=== PATIENT | male | born 1980 | race Caucasian/White ===

== ENCOUNTER 2021-05-18 12:33 | Emergency (ER) | payer OTHER, SELFPAY ==
--- NOTE | ~2021-05-18 | CT_ITS ---
EXAMINATION: CT ABDOMEN AND PELVIS WITHOUT CONTRAST CLINICAL INFORMATION: Left flank pain COMPARISON: None TECHNIQUE: Multidetector volumetric imaging was performed from the superior aspect of the liver through the pubic symphysis. Sagittal and coronal reformatted images were obtained on the technologist's workstation. This CT examination was performed using dose optimization techniques as appropriate, variously including the following: *Automated exposure control *Adjustment of mA and/or kV according to patient size (this includes techniques or standardized protocols for targeted exams where dose is matched to indication/reason for exam; i.e. extremities or head) *Use of iterative reconstruction technique DLP: 479 mGy-cm FINDINGS: LUNG BASES: The visualized lung bases are unremarkable. There is a calcified granuloma seen within the right lobe. No pleural or pericardial effusion. LIVER, GALLBLADDER, AND BILIARY TREE: The liver is normal in size, shape, and attenuation. No focal hepatic lesion or biliary ductal dilatation is present. The gallbladder is unremarkable with no evidence of radiopaque gallstones, gallbladder wall thickening, or obvious pericholecystic inflammatory changes. PANCREAS: Unremarkable. SPLEEN: Unremarkable. ADRENAL GLANDS: Unremarkable. KIDNEYS AND URETERS: The right kidney is normal in size, shape, and attenuation. No hydronephrosis, hydroureter, or calculi seen. No perinephric stranding. The left renal upper collecting system is mildly full. There is some mild columnization of the left ureter down to a 4 mm calculus within the distal left ureter. There is mild perinephric stranding present. BLADDER: Unremarkable. GASTROINTESTINAL TRACT: No dilated loops of large or small bowel are evident. No free air or free fluid. No pericolonic inflammatory change. No evidence of acute appendicitis. There is a small appendicolith present. ABDOMINAL WALL: No significant hernia is appreciated. LYMPH NODES: No lymphadenopathy. VASCULAR: Unremarkable. PELVIC VISCERA: No abnormal pelvic masses seen. OSSEOUS STRUCTURES: No suspicious destructive bony lesion. There is degenerative disc disease seen at the L5-S1 level. CT/CT abdomen pelvis wo con IMPRESSION: 4 mm obstructing distal left ureteral calculus.
[2021-05-18 12:39] VITALS: BP 152/93; PULSE 59; RESP 20; TEMP 37; O2SAT 100; BMI 26.6
[2021-05-18 13:04] LABS: Glucose Urine UA NEG (NEG); Leukocyte Esterase Urine NEG (NEG); Nitrite Urine NEG (NEG); UACC Culture Trigger NO; Urine Blood 3+ (NEG); Urine Ketones 5 MG/DL (NEG); Urine Protein NEG (NEG-TRACE)
[2021-05-18 13:06] LABS: Appearance Urine CLEAR; Color Urine YELLOW
[2021-05-18 13:23] LABS: WBC Urine 0 /HPF (0-4)
[2021-05-18 14:00] VITALS: BP 132/71; PULSE 81; RESP 16
[2021-05-18 14:30] LABS: Basophils Percent Auto 0.3 % (0-2); Eosinophils Percent Auto 0.3 % (0-4); Hematocrit 42.6 % (42-52); Hemoglobin 14.1 g/dl (14.0-18.0); Imm Gran Abs Auto 0.04 X10*3/uL (0.00-0.03); Imm Gran Pct Auto 0.3 % (0.0-0.4); Lymphocytes Absolute Auto 0.7 X10*3/uL (1.2-4.9); Lymphocytes Percent Auto 6.1 % (20-40); MANUAL DIFF FLAG NO; Mean Corpuscular HGB Conc 33.1 g/dl (31.0-36.0); Mean Corpuscular Hemoglobin 31.1 pg (27.0-33.0); Mean Corpuscular Volume 93.8 fL (80-98); Mean Platelet Volume 11.9 fL (9.4-12.4); Monocytes Absolute Auto 0.9 X10*3/uL (0.1-1.2); Monocytes Percent Auto 7.6 % (2-11); Neutrophils Absolute Auto 10.1 X10*3/uL (2.0-8.3); Neutrophils Percent Auto 85.4 % (45-73); Platelet Count 163 X10*3/uL (160-400); Red Blood Count 4.54 X10*6/uL (4.60-5.80); Red Cell Distribution Width 11.9 % (11.0-16.0); White Blood Count 11.8 X10*3/uL (4.8-10.8)
--- NOTE | 2021-05-18 14:46 | ED.ABDPAIN ---
HPI - Abdominal Pain General Chief Complaint: Abdominal Pain Stated Complaint: abd pain Time Seen by Provider: 05/18/21 14:35 History of Present Illness HPI narrative: Patient is a 41-year-old male presents today with having left flank pain radiating to the left groin area. Sharp in nature sudden onset since this morning. No fever no chills no change with bowel movements. No change with urination. No change with movement. Patient from home. Never had similar pains in the past. No cough no congestion or upper respiratory symptoms. No diaphoresis. Related Data Previous Rx's Medication Instructions Recorded ibuprofen 400 mg tablet 400 mg PO Q6H PRN #20 tab 05/18/21 ondansetron HCl 4 mg tablet 4 mg PO Q8H PRN #10 tab 05/18/21 (Zofran) oxycodone 5 mg tablet 5 mg PO Q8H PRN #7 tab 05/18/21 tamsulosin 0.4 mg capsule (Flomax) 0.4 mg PO DAILY #7 cap 05/18/21 Allergies Allergy/AdvReac Type Severity Reaction Status Date / Time No Known Allergies Allergy Mild NOT Verified 05/18/21 12:38 APPLICABLE Review of Systems Review of Systems No fever no chills no chest pain or shortness of breath No pain on urination No nausea no vomiting Yes all other systems are reviewed and are negative Physical Exam Vital Signs: Vital Signs: Last Vital Signs Temp 98.6 F 05/18/21 12:39 Pulse 81 05/18/21 14:00 Resp 16 05/18/21 14:00 BP 132/71 05/18/21 14:00 Pulse Ox 100 05/18/21 12:39 Body Mass Index 26.6 Appearance: Alert. Oriented X3. No acute distress. Eyes: Pupils equal, round and reactive to light. ENT: Pharynx normal. Neck: Normal inspection. Neck supple. No lymph nodes noted. No crepitus CVS: Normal heart rate and rhythm. Pulses normal. Normal S1 and S2 Respiratory: No respiratory distress. Breath sounds normal. No Wheezing. No rales Abdomen: Soft and nontender. No rigidity. No distention. good BS x4 Skin: Skin warm and dry. Normal skin color. Normal skin turgor. Extremities: No lower extremity edema. Neurovascular intact to all extremities. No Lacerations. No Rash Neuro: Oriented X 3. No motor deficit. No sensory deficit. Moving all extermities. No slurred speech MDM - Abdominal Pain MDM Narrative Medical decision making narrative: Urine showed no evidence of infection. Lots of blood. Creatinine is normal no evidence for renal insufficiency. CT scan positive for left-sided 4 mm stone. Pain is currently controlled after medication. Will discharge patient home follow-up with urology on an outpatient basis. In stable condition. Differential Diagnosis Differential diagnosis: Likely abdominal pain, aortic dissection, acute appendicitis, bowel perforation, calculus of kidney, constipation, gastroenteritis, gastritis, pancreatitis, peptic ulcer disease and renal colic Lab Data Result diagrams: 05/18/21 14:26 05/18/21 14:26 Labs: Lab Results 05/18/21 05/18/21 05/18/21 Range/Units 12:49 14:26 14:26 WBC 11.8 H (4.8-10.8) X10*3/uL RBC 4.54 L (4.60-5.80) X10*6/uL Hgb 14.1 (14.0-18.0) g/dl Hct 42.6 (42-52) % MCV 93.8 (80-98) fL MCH 31.1 (27.0-33.0) pg MCHC 33.1 (31.0-36.0) g/dl RDW 11.9 (11.0-16.0) % Plt Count 163 (160-400) X10*3/uL MPV 11.9 (9.4-12.4) fL Immature Gran % (Auto) 0.3 (0.0-0.4) % Neut % (Auto) 85.4 H (45-73) % Lymph % (Auto) 6.1 L (20-40) % [place] % (Auto) 7.6 (2-11) % Eos % (Auto) 0.3 (0-4) % Baso % (Auto) 0.3 (0-2) % Lymph # (Auto) 0.7 L (1.2-4.9) X10*3/uL [place] # (Auto) 0.9 (0.1-1.2) X10*3/uL Eos # (Auto) 0.0 (0.0-0.4) X10*3/uL Baso # (Auto) 0.0 (0.0-0.2) X10*3/uL Abs Immat Gran (auto) 0.04 H (0.00-0.03) X10*3/uL Absolute Neuts (auto) 10.1 H (2.0-8.3) X10*3/uL Absolute Nucleated RBC 0.000 (0.0-0.012) X10*3/uL Nucleated RBC % (auto) 0.0 (0.0-0.2) /100WBC Sodium 141 (135-145) mmol/L Potassium 4.1 (3.3-5.1) mmol/L Chloride 106 (96-108) mmol/L Carbon Dioxide 26 (22-29) mmol/L Anion Gap 13 (12-20) BUN 14 (9-16) mg/dL Creatinine 1.14 (0.5-1.4) mg/dL Estim Creat Clear Calc 75.3 Estimated GFR > 60 Random Glucose 92 (60-115) mg/dL Calcium 9.8 (8.4-10.2) mg/dL Total Bilirubin 0.6 (0.0-1.0) mg/dL AST 28 (5-37) U/L ALT 30 (0-40) U/L Alkaline Phosphatase 82 (39-117) U/L Total Protein 7.2 (6.5-8.0) g/dL Albumin 4.3 (3.5-5.0) g/dL Urine Color YELLOW Urine Appearance CLEAR Urine pH 6.0 (5.0-8.0) Ur Specific [place] 1.020 (1.005-1.025) Urine Protein NEG (NEG-TRACE) MG/DL Urine Glucose (UA) NEG (NEG) MG/DL Urine Ketones 5 (NEG) MG/DL Urine Blood 3+ H (NEG) Urine Nitrite NEG (NEG) Ur Leukocyte Esterase NEG (NEG) Urine RBC 76-150 H (0) /HPF Urine WBC 0 (0-4) /HPF Ur Squamous Epith Cells NONE /LPF Urine Bacteria NONE /LPF Discharge Plan Discharge Clinical Impression: Renal colic Patient Disposition: Home, Self-Care Instructions: Renal Colic (ED) Prescriptions: New ondansetron HCl [Zofran] 4 mg tablet 4 mg PO Q8H PRN (Reason: nausea and vomiting) Qty: 10 RF: 0 tamsulosin [Flomax] 0.4 mg capsule 0.4 mg PO DAILY Qty: 7 RF: 0 ibuprofen 400 mg tablet 400 mg PO Q6H PRN (Reason: pain) Qty: 20 RF: 0 oxycodone 5 mg tablet 5 mg PO Q8H PRN (Reason: pain) Qty: 7 RF: 0 Referrals: Jenaro Chauhan MD [Physician] - 2 days [facility] Past Medical History Medical History No pertinent past medical history Social History Social History Advance Directives: Yes Advance Directives Information Provided: Yes Advance Directives on File: No
[2021-05-18] MEDS: 0.9 % Sodium Chloride 1,000 ML 999 ML IV (14:48)
[2021-05-18] MEDS: Ketorolac Tromethamine 15 MG/ML VIAL IVPUSH (14:48)
[2021-05-18] MEDS: HYDROmorphone HCl 0.5 MG/0.5 ML SYRINGE IVPUSH (14:48)
[2021-05-18 15:03] LABS: Alanine Aminotransferase 30 U/L (0-40); Albumin Level 4.3 g/dL (3.5-5.0); Alkaline Phosphatase 82 U/L (39-117); Anion Gap 13 (12-20); Aspartate Amino Transferase 28 U/L (5-37); Bilirubin Total 0.6 mg/dL (0.0-1.0); Blood Urea Nitrogen 14 mg/dL (9-16); Calcium 9.8 mg/dL (8.4-10.2); Carbon Dioxide 26 mmol/L (22-29); Chloride 106 mmol/L (96-108); Creatinine Clr Calc Pharmacy 75.3; Estimated Glomerular Filt Rate > 60; Glucose Random 92 mg/dL (60-115); Potassium 4.1 mmol/L (3.3-5.1); Sodium 141 mmol/L (135-145); Total Protein 7.2 g/dL (6.5-8.0)
== END 2021-05-18 17:02 | disposition home or self-care (01) ==
PROVIDERS: Emergency Provider Emergency Medicine Emergency Medical Services; PCP Internal Medicine
DX: N13.2 Hydronephrosis with renal and ureteral calculous obstruction (principal)
CPT/HCPCS: 36415; 74176; 80053; 81001; 85025; 96361; 96374; 96375; 99284; J1170; J1885; J2405

== ENCOUNTER 2021-05-26 10:58 | Outpatient (REF) | payer OTHER, SELFPAY ==
[2021-06-01 23:32] LABS: Stone Source KIDNEY
== END 2021-05-26 10:59 | disposition home or self-care (01) ==
LOC: HO.LNP 10:58
PROVIDERS: PCP Internal Medicine; Visit Provider Urology
DX: Z87.442 Personal history of urinary calculi (principal)
CPT/HCPCS: 82365; 88300

== ENCOUNTER 2021-07-29 10:16 | Outpatient (REF) | payer OTHER, SELFPAY ==
--- NOTE | ~2021-07-29 | US_ITS ---
EXAMINATION: US RETROPERITONEAL LIMITED (RENAL ONLY) CLINICAL INFORMATION: Calculus of kidney. COMPARISON: CT abdomen and pelvis 05/18/2021. TECHNIQUE: Real-time imaging of the kidneys. FINDINGS: RIGHT KIDNEY: 10.2 x 4.9 x 4.9 cm (SAG x AP x TRV). The kidney is normal in size, contour, and echogenicity. Renal cortical thickness is normal. No calculi or focal parenchymal lesions. No hydronephrosis. LEFT KIDNEY: 9.7 x 6.2 x 5.6 cm (SAG x AP x TRV). The kidney is normal in size, contour, and echogenicity. Renal cortical thickness is normal. No calculi or focal parenchymal lesions. No hydronephrosis. US/US renal BI IMPRESSION: Unremarkable renal ultrasound.
== END 2021-07-29 10:17 | disposition home or self-care (01) ==
LOC: HO.HMGCX 10:16
PROVIDERS: PCP Internal Medicine; Visit Provider Urology
DX: N20.0 Calculus of kidney (principal)
CPT/HCPCS: 76775

== ENCOUNTER → 2021-08-04 11:52 | Outpatient (BNVA) | payer OTHER, SELFPAY | PROVIDERS: PCP Internal Medicine; Visit Provider Urology ==

== ENCOUNTER 2022-01-23 08:41 | Outpatient (REF) | payer OTHER, SELFPAY ==
--- NOTE | ~2022-01-23 | US_ITS ---
EXAMINATION: US RETROPERITONEAL LIMITED (RENAL ONLY) CLINICAL INFORMATION: Calculus of kidney. COMPARISON: Renal ultrasound 07/29/2021. CT abdomen and pelvis 05/18/2021. TECHNIQUE: Real-time imaging of the kidneys. FINDINGS: RIGHT KIDNEY: 10.3 x 5.3 x 6.0 cm (SAG x AP x TRV). The kidney is normal in size, contour, and echogenicity. Renal cortical thickness is normal. There is a 2 x 2 x 3 mm echogenic density in the midpole with twinkle artifact questionable for a small stone. No focal parenchymal lesions or hydronephrosis. LEFT KIDNEY: 10.8 x 5.9 x 5.1 cm (SAG x AP x TRV). The kidney is normal in size, contour, and echogenicity. Renal cortical thickness is normal. There is a 3 mm echogenic density in the midpole with twinkle artifact questionable for a small stone. No focal parenchymal lesions or hydronephrosis. US/US renal BI IMPRESSION: Question small bilateral renal stones.
== END 2022-01-23 08:42 | disposition home or self-care (01) ==
LOC: HO.HMGCX 08:41
PROVIDERS: Visit Provider Urology
DX: N20.0 Calculus of kidney (principal)
CPT/HCPCS: 76775

== ENCOUNTER → 2022-03-03 14:48 | Outpatient (BNVA) | payer OTHER, SELFPAY | PROVIDERS: PCP Internal Medicine; Visit Provider Urology | DX: Z13.89 Encounter for screening for other disorder (principal) ==

== ENCOUNTER 2023-01-08 19:58 | Emergency (ER) | payer OTHER, SELFPAY ==
--- NOTE | ~2023-01-08 | CT_ITS ---
EXAMINATION: CT ABDOMEN AND PELVIS WITHOUT CONTRAST CLINICAL INFORMATION: Right flank pain. History of kidney stones. COMPARISON: None available. TECHNIQUE: Multidetector volumetric imaging was performed from the superior aspect of the liver through the pubic symphysis. Sagittal and coronal reformatted images were obtained on the technologist's workstation. This CT examination was performed using dose optimization techniques as appropriate, variously including the following: *Automated exposure control *Adjustment of mA and/or kV according to patient size (this includes techniques or standardized protocols for targeted exams where dose is matched to indication/reason for exam; i.e. extremities or head) *Use of iterative reconstruction technique DLP: 462 mGy-cm FINDINGS: LUNG BASES: The visualized lung bases are unremarkable. LIVER, GALLBLADDER, AND BILIARY TREE: The liver is normal in size, shape, and attenuation. No focal hepatic lesion or biliary ductal dilatation is present. The gallbladder is unremarkable with no evidence of radiopaque gallstones, gallbladder wall thickening, or obvious pericholecystic inflammatory changes. PANCREAS: Unremarkable. SPLEEN: Unremarkable. ADRENAL GLANDS: Unremarkable. KIDNEYS AND URETERS: The kidneys are normal in size, shape, and attenuation. There are bilateral radiopaque renal calculi. Three-minute calculi midpole left kidney and tumor radiopaque calculi lower pole right kidney. No caliectasis or hydronephrosis seen. There is 2 mm radiopaque calculi in the distal right ureter adjacent to the UV junction. BLADDER: Unremarkable. GASTROINTESTINAL TRACT: There is scattered stool and gas seen throughout the colon without significant distention. The small bowel loops are normal caliber. Appendix is normal caliber. No free fluid seen. ABDOMINAL WALL: No significant hernia is appreciated. LYMPH NODES: Normal. VASCULAR: Unremarkable. PELVIC VISCERA: Unremarkable. OSSEOUS STRUCTURES: No aggressive lytic or sclerotic process seen. There are degenerative disc changes with loss of disc height and mild ventral and posterior spondylosis L5-S1 disc level. CT/CT abdomen pelvis wo IV con IMPRESSION: Nonobstructive radiopaque renal calculi without hydroureteronephrosis. Nonobstructive 2 mm radiopaque calculi right distal ureter on axial image 70/3 Fleischner guidelines were followed.
[2023-01-08 21:26] VITALS: BP 159/77; PULSE 69; RESP 16; TEMP 36.7; O2SAT 95; BMI 27.4
--- NOTE | 2023-01-08 21:27 | ED_ITS ---
HPI - General Adult General Chief complaint: Urogenital-Male <TANK Moss - Last Filed: 01/08/23 21:29> Stated complaint: pain in abd/ kidney stones? <TANK Moss - Last Filed: 01/08/23 21:29> Time Seen by Provider: 01/08/23 22:24 <TANK Moss - Last Filed: 01/08/23 21:29> Source: patient and family <Alon Lyons MD - Last Filed: 01/08/23 23:53> Mode of arrival: ambulatory <Alon Lyons MD - Last Filed: 01/08/23 23:53> Limitations: no limitations <Alon Lyons MD - Last Filed: 01/08/23 23:53> History of Present Illness HPI narrative: 42-year-old male who presents emergency department for evaluation of right -sided flank pain that started yesterday. He states that the pain came on suddenly yesterday but was intermittent. He describes the pain is a swollen pressure-like pain he points to his right flank. The pain does radiate to his right lower quadrant and right groin area. The patient states that the pain feels similar to the kidney stone that he had on the left approximately 1 year prior. The patient states that that time was told that he had or kidney stones any did follow-up with our urologist, Dr. Chauhan. The patient denied fever, chills, chest pain, shortness of breath, nausea, vomiting, diarrhea, frequency urgency or dysuria. He has not noted any hematuria. RME review <Alon Lyons MD - Last Filed: 01/08/23 23:53> Related Data Home medications: Previous Rx's Medication Instructions Recorded ibuprofen 400 mg tablet 400 mg PO Q6H PRN pain #20 tabs 05/18/21 ondansetron HCl 4 mg tablet 4 mg PO Q8H PRN nausea and 05/18/21 (Zofran) vomiting #10 tabs oxycodone 5 mg tablet 5 mg PO Q8H PRN pain #7 tabs 05/18/21 tamsulosin 0.4 mg capsule (Flomax) 0.4 mg PO DAILY #7 caps 05/18/21 prednisone 20 mg tablet 20 mg PO DAILY 5 days #5 tabs 05/19/21 tamsulosin 0.4 mg capsule 0.4 mg PO DAILY 7 days #7 caps 05/19/21 ibuprofen 400 mg tablet 400 mg PO TID PRN fever or pain 01/08/23 #30 tabs oxycodone 5 mg tablet 5 mg PO Q4H PRN pain #10 tabs 01/08/23 tamsulosin 0.4 mg capsule (Flomax) 0.4 mg PO DAILY #30 caps 01/08/23 <TANK Moss - Last Filed: 01/08/23 21:29> Allergies/adverse reactions: Allergies Allergy/AdvReac Type Severity Reaction Status Date / Time No Known Allergies Allergy Mild NOT Verified 03/03/22 14:49 APPLICABLE <TANK Moss - Last Filed: 01/08/23 21:29> Review of Systems Review of Systems: Yes all other systems are reviewed and are negative <Alon Lyons MD - Last Filed: 01/08/23 23:53> [facility] Past Medical History [facility] Narrative: Past medical history: Asthma, kidney stones. Social history: He denies tobacco, alcohol and drug use. <Alon Lyons MD - Last Filed: 01/08/23 23:53> Medical History: Medical History No pertinent past medical history <TANK Moss - Last Filed: 01/08/23 21:29> Social History Social History: Social History Advance Directives: No Advance Directives Information Provided: Yes <TANK Moss - Last Filed: 01/08/23 21:29> Physical Exam ED Vital Signs: Vital Signs - 24 hr 01/08/23 21:26 01/08/23 23:48 Temperature 98.1 F 98.2 F Pulse Rate 69 74 Respiratory Rate 16 16 Blood Pressure 159/77 H 112/56 L Pulse Oximetry 95 98 Oxygen Delivery Method Room Air Room Air BMI result Body Mass Index 27.4 <TANK Moss - Last Filed: 01/08/23 21:29> Vital Signs - 24 hr 01/08/23 21:26 01/08/23 23:48 Temperature 98.1 F 98.2 F Pulse Rate 69 74 Respiratory Rate 16 16 Blood Pressure 159/77 H 112/56 L Pulse Oximetry 95 98 Oxygen Delivery Method Room Air Room Air BMI result Body Mass Index 27.4 <Alon Lyons MD - Last Filed: 01/08/23 23:53> Const General: cooperative and no acute distress <Alon Lyons MD - Last Filed: 01/08/23 23:53> Orientation/consciousness: oriented to person and oriented to place <Alon Lyons MD - Last Filed: 01/08/23 23:53> Limitations: no limitations <Alon Lyons MD - Last Filed: 01/08/23 23:53> HENMT Head: Yes normal to inspection, Yes normocephalic and Yes atraumatic <Alon Lyons MD - Last Filed: 01/08/23 23:53> Ears: external ears normal <Alon Lyons MD - Last Filed: 01/08/23 23:53> General nose exam: Normal external nose present <Alon Lyons MD - Last Filed: 01/08/23 23:53> Face and sinus: Yes normal facial exam <Alon Lyons MD - Last Filed: 01/08/23 23:53> Mouth: Normal oral and palatal mucosa present <Alon Lyons MD - Last Filed: 01/08/23 23:53> Throat: Yes posterior oropharynx normal <Alon Lyons MD - Last Filed: 01/08/23 23:53> Eyes General: appearance normal, both eyes and all related structures <Alon Lyons MD - Last Filed: 01/08/23 23:53> Neck Neck: Yes normal visual inspection, Yes no lymphadenopathy, Yes trachea midline and Yes supple <Alon Lyons MD - Last Filed: 01/08/23 23:53> Chest Chest palpation & inspection: normal inspection of the chest and normal palpation of entire chest wall <Alon Lyons MD - Last Filed: 01/08/23 23:53> Resp Effort & Inspection: normal respiratory effort and able to speak in complete sentences <Alon Lyons MD - Last Filed: 01/08/23 23:53> Auscultation: clear to auscultation bilaterally <Alon Lyons MD - Last Filed: 01/08/23 23:53> Cardio Rate: regular rate <Alon Lyons MD - Last Filed: 01/08/23 23:53> Rhythm: regular rhythm <Alon Lyons MD - Last Filed: 01/08/23 23:53> Heart sounds: S1 normal heart sound present, S2 normal heart sound present and no murmurs <Alon Lyons MD - Last Filed: 01/08/23 23:53> GI Inspection: Yes normal to inspection <Alon Lyons MD - Last Filed: 01/08/23 23:53> Palpation (GI): Soft to palpation, nontender and no guarding <Alon Lyons MD - Last Filed: 01/08/23 23:53> Auscultation: normal bowel sounds <Alon Lyons MD - Last Filed: 01/08/23 23:53> Other: [id number] right CVA tenderness <Alon Lyons MD - Last Filed: 01/08/23 23:53> Skin General skin exam: no rashes or lesions noted <Alon Lyons MD - Last Filed: 01/08/23 23:53> Neuro General: oriented to person and oriented to place <Alon Lyons MD - Last Filed: 01/08/23 23:53> Cognition (Neuro): normal cognition <MD Victoriano Ashford Last Filed: 01/08/23 23:53> Motor exam (neuro): 5/5 motor strength present throughout <MD Victoriano Ashford Last Filed: 01/08/23 23:53> Extrem General: Yes normal to inspection <Alon Lyons MD - Last Filed: 01/08/23 23:53> Psych Appearance: grossly normal <Alon Lyons MD - Last Filed: 01/08/23 23:53> Speech and movement: Normal speech and movement present <lAon Lyons MD - Last Filed: 01/08/23 23:53> Affect: normal affect <Alon Lyons MD - Last Filed: 01/08/23 23:53> Attitude: cooperative <Alon Lyons MD - Last Filed: 01/08/23 23:53> Course Course Course Narrative: This is an RME: Additional HPI, ROS, PE not included below will be deferred to primary provider. 42-year-old male history of asthma, nephrolithiasis presenting to the emergency department for evaluation of right- sided flank pain, urinary frequency, urgency, incomplete emptying of bladder since yesterday. Patient tells me this feels like the last time he had a kidney stone however it was on the opposite side. Patient is followed by Dr. Chauhan. Denies fevers, chills, nausea, vomiting, headache, vision changes, dizziness, chest pain, shortness of breath. Physical exam with right-sided CVA tenderness. Appears uncomfortable pacing around the room. Concerns for kidney stones will order basic labs, urine, CT of the abdomen and pelvis. Ordered Toradol for pain control <TANK Moss - Last Filed: 01/08/23 21:29> Medications Administered Discontinued Medications Generic Name Dose Route Start Last Admin Trade Name Freq PRN Reason Stop Dose Admin Sodium Chloride 1,000 mls @ 999 mls/hr 01/08/23 21:30 01/08/23 22:45 Ns IV 01/08/23 22:30 999 mls/hr .Q1H1M TAYLOR Administration Ketorolac Tromethamine 30 mg 01/08/23 22:38 01/08/23 22:44 Ketorolac Tromethamine 15 Mg/Ml Vial IVPUSH 01/08/23 22:39 30 mg ONCE STA Administration Tamsulosin HCl 0.4 mg 01/08/23 22:51 01/08/23 22:55 Tamsulosin Hcl 0.4 Mg Capsule PO 01/08/23 22:52 0.4 mg ONCE ONE Administration <TANK Moss - Last Filed: 01/08/23 21:29> Medications Administered Discontinued Medications Generic Name Dose Route Start Last Admin Trade Name Elroy PRN Reason Stop Dose Admin Sodium Chloride 1,000 mls @ 999 mls/hr 01/08/23 21:30 01/08/23 22:45 Ns IV 01/08/23 22:30 999 mls/hr .Q1H1M TAYLOR Administration Ketorolac Tromethamine 30 mg 01/08/23 22:38 01/08/23 22:44 Ketorolac Tromethamine 15 Mg/Ml Vial IVPUSH 01/08/23 22:39 30 mg ONCE STA Administration Tamsulosin HCl 0.4 mg 01/08/23 22:51 01/08/23 22:55 Tamsulosin Hcl 0.4 Mg Capsule PO 01/08/23 22:52 0.4 mg ONCE ONE Administration <Alon Lyons MD - Last Filed: 01/08/23 23:53> Medical Decision Making Medical Decision Making MDM Narrative: 42-year-old male who presents emergency department for evaluation of intermittent right flank, right lower quadrant and right groin pain x2 days. Patient states the pain feels similar to his kidney stone pain that he had 1 year prior but this was on the left at that time was told that he had more kidney stones. The patient's vital signs did reveal an elevated blood pressure of 159/77. He also had mild to moderate right CVA tenderness. Following tests were ordered by provider in triage: CBC, CMP, lipase, magnesium, urinalysis COVID-19, CT abdomen pelvis without IV contrast. 2254: My interpretation patient's laboratory evaluation as follows. CBC was normal. CMP normal. Lipase negative. Urinalysis revealed 3+ blood. Microscopic revealed 6-10 rbc's. COVID-[address] scan of the abdomen pelvis revealed bilateral radiopaque renal calculi 3 mm left kidney and 2 mm right kidney. Patient also has a 2 mm calculi in the distal right ureter adjacent to the UV junction. The ureteral stone most likely explains the patient's pain. Patient was ordered Toradol 30 mg IV and normal saline x1 L. I Also also ordered Flomax 0.4 mg orally. The patient will be discharged home with a prescription for ibuprofen 400 mg every 6 hours as needed for pain, Tylenol 1000 mg every 6 hours as needed for pain and for pain not relieved by these medications she was prescribed oxycodone 5 mg 1 pill every 4-6 hours as needed for pain. Is also started on Flomax 0.4 mg daily into a passed stone. He was given printed and verbal instructions and discharged home. 2352: Patient feels significantly better after the above treatment and was discharged home. <Alon Lyons MD - Last Filed: 01/08/23 23:53> Lab Data MDM Lab Attestation statement: I reviewed the patient's lab results. <Alon Lyons MD - Last Filed: 01/08/23 23:53> Result Diagrams: 01/08/23 21:55 01/08/23 21:55 <TANK Moss - Last Filed: 01/08/23 21:29> Labs: Lab Results 01/08/23 01/08/23 01/08/23 Range/Units 21:51 21:55 21:55 WBC 7.8 (4.8-10.8) X10*3/uL RBC 4.43 L (4.60-5.80) X10*6/uL Hgb 13.7 L (14.0-18.0) g/dl Hct 41.1 L (42.0-52.0) % MCV 92.8 (80.0-98.0) fL MCH 30.9 (27.0-33.0) pg MCHC 33.3 (31.0-36.0) g/dl RDW 11.9 (11.0-16.0) % Plt Count 181 (160-400) X10*3/uL MPV 12.1 (9.4-12.4) fL Immature Gran % (Auto) 0.1 (0.0-0.4) % Neut % (Auto) 73.6 H (45-73) % Lymph % (Auto) 16.6 L (20-40) % Meagher % (Auto) 8.6 (2-11) % Eos % (Auto) 0.5 (0-4) % Baso % (Auto) 0.6 (0-2) % Lymph # (Auto) 1.3 (1.2-4.9) X10*3/uL Meagher # (Auto) 0.7 (0.1-1.2) X10*3/uL Eos # (Auto) 0.0 (0.0-0.4) X10*3/uL Baso # (Auto) 0.1 (0.0-0.2) X10*3/uL Abs Immat Gran (auto) 0.01 (0.00-0.03) X10*3/uL Absolute Neuts (auto) 5.7 (2.0-8.3) x10*3/uL Absolute Nucleated RBC 0.000 (0.0-0.012) X10*3/uL Nucleated RBC % (auto) 0.0 (0.0-0.2) /100WBC Sodium 138 (135-145) mmol/L Potassium 4.0 (3.3-5.1) mmol/L Chloride 103 (96-108) mmol/L Carbon Dioxide 26 (22-29) mmol/L Anion Gap 13 (12-20) BUN 14 (9-16) mg/dL Creatinine 1.14 (0.5-1.4) mg/dL Estim Creat Clear Calc 80.8 Estimated GFR > 60 Random Glucose 103 (60-115) mg/dL Calcium 9.6 (8.4-10.2) mg/dL Magnesium 1.8 (1.6-2.6) mg/dL Total Bilirubin 0.7 (0.0-1.0) mg/dL AST 23 (5-37) U/L ALT 34 (0-40) U/L Alkaline Phosphatase 72 (39-117) U/L Total Protein 7.1 (6.5-8.0) g/dL Albumin 4.5 (3.5-5.0) g/dL Lipase 22 (8-78) U/L Urine Color Urine Appearance Urine pH (5.0-9.0) Ur Specific [place] (1.005-1.025) Urine Protein (Neg-Trace) mg/dL Urine Glucose (UA) (Negative) mg/dL Urine Ketones (Negative) mg/dL Urine Blood (Negative) Urine Nitrite (Negative) Ur Leukocyte Esterase (Negative) Urine RBC (0-2) /HPF Urine WBC (0-5) /HPF Ur Squamous Epith Cells (0-2) /HPF Urine Bacteria (None Seen) Hyaline Casts (0-2) /LPF COVID-19 (LISA) Negative (Negative) COVID-19 Clin Com See Note 01/08/23 Range/Units 22:33 WBC (4.8-10.8) X10*3/uL RBC (4.60-5.80) X10*6/uL Hgb (14.0-18.0) g/dl Hct (42.0-52.0) % MCV (80.0-98.0) fL MCH (27.0-33.0) pg MCHC (31.0-36.0) g/dl RDW (11.0-16.0) % Plt Count (160-400) X10*3/uL MPV (9.4-12.4) fL Immature Gran % (Auto) (0.0-0.4) % Neut % (Auto) (45-73) % Lymph % (Auto) (20-40) % Meagher % (Auto) (2-11) % Eos % (Auto) (0-4) % Baso % (Auto) (0-2) % Lymph # (Auto) (1.2-4.9) X10*3/uL Meagher # (Auto) (0.1-1.2) X10*3/uL Eos # (Auto) (0.0-0.4) X10*3/uL Baso # (Auto) (0.0-0.2) X10*3/uL Abs Immat Gran (auto) (0.00-0.03) X10*3/uL Absolute Neuts (auto) (2.0-8.3) x10*3/uL Absolute Nucleated RBC (0.0-0.012) X10*3/uL Nucleated RBC % (auto) (0.0-0.2) /100WBC Sodium (135-145) mmol/L Potassium (3.3-5.1) mmol/L Chloride (96-108) mmol/L Carbon Dioxide (22-29) mmol/L Anion Gap (12-20) BUN (9-16) mg/dL Creatinine (0.5-1.4) mg/dL Estim Creat Clear Calc Estimated GFR Random Glucose (60-115) mg/dL Calcium (8.4-10.2) mg/dL Magnesium (1.6-2.6) mg/dL Total Bilirubin (0.0-1.0) mg/dL AST (5-37) U/L ALT (0-40) U/L Alkaline Phosphatase (39-117) U/L Total Protein (6.5-8.0) g/dL Albumin (3.5-5.0) g/dL Lipase (8-78) U/L Urine Color Yellow Urine Appearance Cloudy Urine pH 5.5 (5.0-9.0) Ur Specific [place] 1.010 (1.005-1.025) Urine Protein Negative (Neg-Trace) mg/dL Urine Glucose (UA) Negative (Negative) mg/dL Urine Ketones Negative (Negative) mg/dL Urine Blood Large (3+) H (Negative) Urine Nitrite Negative (Negative) Ur Leukocyte Esterase Negative (Negative) Urine RBC 6-10 H (0-2) /HPF Urine WBC 0-5 (0-5) /HPF Ur Squamous Epith Cells 0-2 (0-2) /HPF Urine Bacteria None Seen (None Seen) Hyaline Casts 0-2 (0-2) /LPF COVID-19 (LISA) (Negative) COVID-19 Clin Com <TANK Moss - Last Filed: 01/08/23 21:29> Lab Results 01/08/23 01/08/23 01/08/23 Range/Units 21:51 21:55 21:55 WBC 7.8 (4.8-10.8) X10*3/uL RBC 4.43 L (4.60-5.80) X10*6/uL Hgb 13.7 L (14.0-18.0) g/dl Hct 41.1 L (42.0-52.0) % MCV 92.8 (80.0-98.0) fL MCH 30.9 (27.0-33.0) pg MCHC 33.3 (31.0-36.0) g/dl RDW 11.9 (11.0-16.0) % Plt Count 181 (160-400) X10*3/uL MPV 12.1 (9.4-12.4) fL Immature Gran % (Auto) 0.1 (0.0-0.4) % Neut % (Auto) 73.6 H (45-73) % Lymph % (Auto) 16.6 L (20-40) % Meagher % (Auto) 8.6 (2-11) % Eos % (Auto) 0.5 (0-4) % Baso % (Auto) 0.6 (0-2) % Lymph # (Auto) 1.3 (1.2-4.9) X10*3/uL Meagher # (Auto) 0.7 (0.1-1.2) X10*3/uL Eos # (Auto) 0.0 (0.0-0.4) X10*3/uL Baso # (Auto) 0.1 (0.0-0.2) X10*3/uL Abs Immat Gran (auto) 0.01 (0.00-0.03) X10*3/uL Absolute Neuts (auto) 5.7 (2.0-8.3) x10*3/uL Absolute Nucleated RBC 0.000 (0.0-0.012) X10*3/uL Nucleated RBC % (auto) 0.0 (0.0-0.2) /100WBC Sodium 138 (135-145) mmol/L Potassium 4.0 (3.3-5.1) mmol/L Chloride 103 (96-108) mmol/L Carbon Dioxide 26 (22-29) mmol/L Anion Gap 13 (12-20) BUN 14 (9-16) mg/dL Creatinine 1.14 (0.5-1.4) mg/dL Estim Creat Clear Calc 80.8 Estimated GFR > 60 Random Glucose 103 (60-115) mg/dL Calcium 9.6 (8.4-10.2) mg/dL Magnesium 1.8 (1.6-2.6) mg/dL Total Bilirubin 0.7 (0.0-1.0) mg/dL AST 23 (5-37) U/L ALT 34 (0-40) U/L Alkaline Phosphatase 72 (39-117) U/L Total Protein 7.1 (6.5-8.0) g/dL Albumin 4.5 (3.5-5.0) g/dL Lipase 22 (8-78) U/L Urine Color Urine Appearance Urine pH (5.0-9.0) Ur Specific [place] (1.005-1.025) Urine Protein (Neg-Trace) mg/dL Urine Glucose (UA) (Negative) mg/dL Urine Ketones (Negative) mg/dL Urine Blood (Negative) Urine Nitrite (Negative) Ur Leukocyte Esterase (Negative) Urine RBC (0-2) /HPF Urine WBC (0-5) /HPF Ur Squamous Epith Cells (0-2) /HPF Urine Bacteria (None Seen) Hyaline Casts (0-2) /LPF COVID-19 (LISA) Negative (Negative) COVID-19 Clin Com See Note 01/08/23 Range/Units 22:33 WBC (4.8-10.8) X10*3/uL RBC (4.60-5.80) X10*6/uL Hgb (14.0-18.0) g/dl Hct (42.0-52.0) % MCV (80.0-98.0) fL MCH (27.0-33.0) pg MCHC (31.0-36.0) g/dl RDW (11.0-16.0) % Plt Count (160-400) X10*3/uL MPV (9.4-12.4) fL Immature Gran % (Auto) (0.0-0.4) % Neut % (Auto) (45-73) % Lymph % (Auto) (20-40) % Meagher % (Auto) (2-11) % Eos % (Auto) (0-4) % Baso % (Auto) (0-2) % Lymph # (Auto) (1.2-4.9) X10*3/uL Meagher # (Auto) (0.1-1.2) X10*3/uL Eos # (Auto) (0.0-0.4) X10*3/uL Baso # (Auto) (0.0-0.2) X10*3/uL Abs Immat Gran (auto) (0.00-0.03) X10*3/uL Absolute Neuts (auto) (2.0-8.3) x10*3/uL Absolute Nucleated RBC (0.0-0.012) X10*3/uL Nucleated RBC % (auto) (0.0-0.2) /100WBC Sodium (135-145) mmol/L Potassium (3.3-5.1) mmol/L Chloride (96-108) mmol/L Carbon Dioxide (22-29) mmol/L Anion Gap (12-20) BUN (9-16) mg/dL Creatinine (0.5-1.4) mg/dL Estim Creat Clear Calc Estimated GFR Random Glucose (60-115) mg/dL Calcium (8.4-10.2) mg/dL Magnesium (1.6-2.6) mg/dL Total Bilirubin (0.0-1.0) mg/dL AST (5-37) U/L ALT (0-40) U/L Alkaline Phosphatase (39-117) U/L Total Protein (6.5-8.0) g/dL Albumin (3.5-5.0) g/dL Lipase (8-78) U/L Urine Color Yellow Urine Appearance Cloudy Urine pH 5.5 (5.0-9.0) Ur Specific [place] 1.010 (1.005-1.025) Urine Protein Negative (Neg-Trace) mg/dL Urine Glucose (UA) Negative (Negative) mg/dL Urine Ketones Negative (Negative) mg/dL Urine Blood Large (3+) H (Negative) Urine Nitrite Negative (Negative) Ur Leukocyte Esterase Negative (Negative) Urine RBC 6-10 H (0-2) /HPF Urine WBC 0-5 (0-5) /HPF Ur Squamous Epith Cells 0-2 (0-2) /HPF Urine Bacteria None Seen (None Seen) Hyaline Casts 0-2 (0-2) /LPF COVID-19 (LISA) (Negative) COVID-19 Clin Com <Alon Lyons MD - Last Filed: 01/08/23 23:53> Radiology Impression Discussion of test interpretation with radiology: I have reviewed the radiologist's reading. <Alon Lyons MD - Last Filed: 01/08/23 23:53> Radiologist Impression: EXAMINATION: CT ABDOMEN AND PELVIS WITHOUT CONTRAST FINDINGS: LUNG BASES: The visualized lung bases are unremarkable. LIVER, GALLBLADDER, AND BILIARY TREE: The liver is normal in size, shape, and attenuation. No focal hepatic lesion or biliary ductal dilatation is present. The gallbladder is unremarkable with no evidence of radiopaque gallstones, gallbladder wall thickening, or obvious pericholecystic inflammatory changes. PANCREAS: Unremarkable. SPLEEN: Unremarkable. ADRENAL GLANDS: Unremarkable. KIDNEYS AND URETERS: The kidneys are normal in size, shape, and attenuation. There are bilateral radiopaque renal calculi. Three-minute calculi midpole left kidney and tumor radiopaque calculi lower pole right kidney. No caliectasis or hydronephrosis seen. There is 2 mm radiopaque calculi in the distal right ureter adjacent to the UV junction. BLADDER: Unremarkable. GASTROINTESTINAL TRACT: There is scattered stool and gas seen throughout the colon without significant distention. The small bowel loops are normal caliber. Appendix is normal caliber. No free fluid seen. ABDOMINAL WALL: No significant hernia is appreciated. LYMPH NODES: Normal. VASCULAR: Unremarkable. PELVIC VISCERA: Unremarkable. OSSEOUS STRUCTURES: No aggressive lytic or sclerotic process seen. There are degenerative disc changes with loss of disc height and mild ventral and posterior spondylosis L5-S1 disc level. CT/CT abdomen pelvis wo IV con IMPRESSION: Nonobstructive radiopaque renal calculi without hydroureteronephrosis. Nonobstructive 2 mm radiopaque calculi right distal ureter on axial image 70/3 Fleischner guidelines were followed. Dictated By:Jarrett Vasquez MDSigned By:<Electronically signed by Jarrett Vasquez MD in [place]>01/08/237 <Alon Lyons MD - Last Filed: 01/08/23 23:53> Discharge Plan Discharge Clinical Impression: Renal colic on right side, Right distal ureteral calculus <TANK Moss - Last Filed: 01/08/23 21:29> Patient Disposition: Home, Self-Care <TANK Moss - Last Filed: 01/08/23 21:29> Instructions: How to Strain Your Urine (ED), Ureteral Stones (ED) <TANK Moss - Last Filed: 01/08/23 21:29> Additional Instructions: Your blood work was normal. Your COVID-19 test was negative. Your urine was positive for blood which goes along with a kidney stone The CT scan of your abdomen pelvis without IV contrast revealed a 3 mm stone in your left kidney, a 2 mm stone in your right kidney. The stones are not causing your pain today. You have a 2 mm stone in the right ureter (the tube that connects the kidney to the bladder) and this is the cause of your right-sided pain. Take ibuprofen 4 mg pills, 1 pills every 6 hours as needed for pain. Take Tylenol (acetaminophen) 500 mg pills, 2 pills every 6 hours as needed for pain. This is an dpfm-ydm-bjjtatc medication. For pain not relieved by ibuprofen or Tylenol take oxycodone 5 mg pills, 1 pill every 4 hours as needed for pain. Do not drive or work while taking this medication since they can cause sleepiness. Oxycodone is a narcotic medication that can be addicting. If you are concerned about addiction you can ask the pharmacist for less pills or do not get this prescription filled. Take Flomax (tamsulosin) 0.4 mg once a day for the next 2 weeks or until you pass the stone. This medication helps relax the ureter and may help you pass the stone sooner. Make sure you strain your urine and follow the kidney stone instructions. Follow-up with Dr. Chauhan in 7-10 days for re-evaluation. Please return to the emergency department if your symptoms get worse or if you d evelop any symptoms that are concerning to you. <TANK Moss - Last Filed: 01/08/23 21:29> Prescriptions: New tamsulosin [Flomax] 0.4 mg capsule 0.4 mg PO DAILY Qty: 30 0RF ibuprofen 400 mg tablet 400 mg PO TID PRN (Reason: fever or pain) Qty: 30 0RF oxycodone 5 mg tablet 5 mg PO Q4H PRN (Reason: pain) Qty: 10 0RF Rx Instructions: Patient may request partial fill; Partial Fill upon patient request. No Action prednisone 20 mg tablet 20 mg PO DAILY 5 Days Qty: 5 0RF tamsulosin 0.4 mg capsule 0.4 mg PO DAILY 7 Days Qty: 7 0RF ondansetron HCl [Zofran] 4 mg tablet 4 mg PO Q8H PRN (Reason: nausea and vomiting) Qty: 10 0RF tamsulosin [Flomax] 0.4 mg capsule 0.4 mg PO DAILY Qty: 7 0RF ibuprofen 400 mg tablet 400 mg PO Q6H PRN (Reason: pain) Qty: 20 0RF oxycodone 5 mg tablet 5 mg PO Q8H PRN (Reason: pain) Qty: 7 0RF <TANK Moss - Last Filed: 01/08/23 21:29> Stand Alone Forms: Work/School Release <TANK Moss - Last Filed: 01/08/23 21:29>
[2023-01-08 22:01] LABS: MANUAL DIFF FLAG NO
[2023-01-08 22:02] LABS: Basophils Absolute Auto 0.1 X10*3/uL (0.0-0.2); Basophils Percent Auto 0.6 % (0-2); Eosinophils Percent Auto 0.5 % (0-4); Hematocrit 41.1 % (42.0-52.0); Hemoglobin 13.7 g/dl (14.0-18.0); Imm Gran Abs Auto 0.01 X10*3/uL (0.00-0.03); Imm Gran Pct Auto 0.1 % (0.0-0.4); Lymphocytes Absolute Auto 1.3 X10*3/uL (1.2-4.9); Lymphocytes Percent Auto 16.6 % (20-40); Mean Corpuscular HGB Conc 33.3 g/dl (31.0-36.0); Mean Corpuscular Hemoglobin 30.9 pg (27.0-33.0); Mean Corpuscular Volume 92.8 fL (80.0-98.0); Mean Platelet Volume 12.1 fL (9.4-12.4); Monocytes Absolute Auto 0.7 X10*3/uL (0.1-1.2); Monocytes Percent Auto 8.6 % (2-11); Neutrophils Absolute Auto 5.7 x10*3/uL (2.0-8.3); Neutrophils Percent Auto 73.6 % (45-73); Platelet Count 181 X10*3/uL (160-400); Red Blood Count 4.43 X10*6/uL (4.60-5.80); Red Cell Distribution Width 11.9 % (11.0-16.0); White Blood Count 7.8 X10*3/uL (4.8-10.8)
[2023-01-08 22:18] LABS: Alanine Aminotransferase 34 U/L (0-40); Albumin Level 4.5 g/dL (3.5-5.0); Alkaline Phosphatase 72 U/L (39-117); Anion Gap 13 (12-20); Aspartate Amino Transferase 23 U/L (5-37); Bilirubin Total 0.7 mg/dL (0.0-1.0); Blood Urea Nitrogen 14 mg/dL (9-16); Calcium 9.6 mg/dL (8.4-10.2); Carbon Dioxide 26 mmol/L (22-29); Chloride 103 mmol/L (96-108); Creatinine Clr Calc Pharmacy 80.8; Estimated Glomerular Filt Rate > 60; Glucose Random 103 mg/dL (60-115); Lipase 22 U/L (8-78); Magnesium 1.8 mg/dL (1.6-2.6); Sodium 138 mmol/L (135-145); Total Protein 7.1 g/dL (6.5-8.0)
[2023-01-08 22:22] LABS: COVID-19 Test Negative (Negative); IDNOW Serial# 55D5AD1C
[2023-01-08 22:38] LABS: Appearance Urine Cloudy; Color Urine Yellow; Glucose Urine UA Negative (Negative); Leukocyte Esterase Urine Negative (Negative); Nitrite Urine Negative (Negative); PH 5.5 (5.0-9.0); UMIC TRIGGER UACC YES; Urine Blood Large (3+) (Negative); Urine Ketones Negative (Negative); Urine Protein Negative (Neg-Trace)
[2023-01-08 22:41] LABS: Bacteria Urine None Seen (None Seen); Hyaline Casts Urine 0-2 /LPF (0-2); Squamous Epithelial Cell Urine 0-2 /HPF (0-2); WBC Urine 0-5 /HPF (0-5)
[2023-01-08] MEDS: Ketorolac Tromethamine 15 MG/ML VIAL 30 MG IVPUSH (22:44)
[2023-01-08] MEDS: 0.9 % Sodium Chloride 1,000 ML 999 ML IV (22:45)
[2023-01-08] MEDS: Tamsulosin HCL 0.4 MG CAPSULE PO (22:55)
[2023-01-08 23:48] VITALS: BP 112/56; PULSE 74; RESP 16; TEMP 36.8; O2SAT 98
--- NOTE | 2023-01-08 23:49 | MHC.EDTECH ---
this pct assumed care of pt at 2300 ,vitals sign taken pt resting quietly in bed .
--- NOTE | 2023-01-08 23:52 | PC.NURSE ---
late entry: 20g Iv placed in left forearm, fluids ran without issue. pt reports no pain at this time
== END 2023-01-08 23:59 | disposition home or self-care (01) ==
PROVIDERS: Physician Assistant; Emergency Provider Emergency Medicine Emergency Medical Services; PCP Internal Medicine
DX: N23 Unspecified renal colic (principal); N20.1 Calculus of ureter; Z20.822 Contact with and (suspected) exposure to COVID-19
CPT/HCPCS: 74176; 80053; 81001; 83690; 83735; 85025; 87635; 96361; 96374; 99284; J1885

== ENCOUNTER 2023-02-13 08:12 | Outpatient (REF) | payer OTHER, SELFPAY ==
--- NOTE | ~2023-02-13 | US_ITS ---
EXAMINATION: US RETROPERITONEAL LIMITED (RENAL ONLY) CLINICAL INFORMATION: Calculus of kidney. COMPARISON: CT abdomen and pelvis 01/08/2023. Renal ultrasound 01/23/2022 and 07/29/2021. TECHNIQUE: Real-time imaging of the kidneys. FINDINGS: RIGHT KIDNEY: 10.5 x 4.7 x 6.3 cm (SAG x AP x TRV). The kidney is normal in size, contour, and echogenicity. Renal cortical thickness is normal. No focal parenchymal lesions or hydronephrosis. 3 mm nonobstructing stone. LEFT KIDNEY: 10.7 x 6.4 x 5.7 cm (SAG x AP x TRV). The kidney is normal in size, contour, and echogenicity. Renal cortical thickness is normal. No focal parenchymal lesions or hydronephrosis. 3 mm nonobstructing stone. US/US renal BI IMPRESSION: Bilateral nonobstructing nephrolithiasis. No hydronephrosis.
== END 2023-02-13 08:13 | disposition home or self-care (01) ==
LOC: HO.HMGCX 08:12
PROVIDERS: PCP Internal Medicine; Visit Provider Urology
DX: N20.0 Calculus of kidney (principal)
CPT/HCPCS: 76775

== ENCOUNTER → 2023-03-07 10:44 | Outpatient (BNVA) | payer OTHER, SELFPAY | PROVIDERS: PCP Internal Medicine; Visit Provider Urology ==

== ENCOUNTER 2023-08-22 07:47 | Outpatient (REF) | payer OTHER, SELFPAY ==
--- NOTE | ~2023-08-22 | US_ITS ---
EXAMINATION: US RETROPERITONEAL LIMITED (RENAL ONLY) CLINICAL INFORMATION: Calculus of kidney. COMPARISON: Renal ultrasound 02/13/2023 and 01/23/2022. CT abdomen and pelvis 01/08/2023. TECHNIQUE: Real-time imaging of the kidneys. FINDINGS: RIGHT KIDNEY: 9.4 x 5.3 x 6.2 cm (SAG x AP x TRV). The kidney is normal in size, contour, and echogenicity. Renal cortical thickness is normal. No focal parenchymal lesions or hydronephrosis. Nonobstructive right renal calculus in the interpolar region measuring up to 4 mm. LEFT KIDNEY: 10.0 x 6.0 x 5.9 cm (SAG x AP x TRV). The kidney is normal in size, contour, and echogenicity. Renal cortical thickness is normal. No focal parenchymal lesions or hydronephrosis. Nonobstructive left renal calculi measuring up to 5 mm. US/US renal BI IMPRESSION: Bilateral nephrolithiasis without hydronephrosis.
== END 2023-08-22 07:48 | disposition home or self-care (01) ==
LOC: HO.US 07:47
PROVIDERS: PCP Internal Medicine; Visit Provider Urology
DX: N20.0 Calculus of kidney (principal)
CPT/HCPCS: 76775

== ENCOUNTER 2023-09-04 12:34 | Outpatient (AMB) | payer OTHER, SELFPAY ==
--- NOTE | 2023-09-04 13:27 | A.OFFVIS_ITS ---
Intake Intake Visit Reasons: 6m/US(set) Allergies No Known Allergies Allergy (Mild, Verified 03/03/22 14:49) NOT APPLICABLE HPI HPI Comments History of Present Illness Details Patrick is a pleasant male. He is a patient of Dr. Marrero. He is seen for the following urologic issues - nephrolithiasis Telemedicine Evaluation 15 min Consultation [employer] Sergei Video attempted Discussed recent ED visit Start allopurinol and vitamin B6 Interval surveillance in 6 months Nephrolithiasis Recurrent flank pain 01/11 CT 2 mm distal right ureteric stone Thinks he passed the stone with medical expulsion therapy Imaging - 05/11 CT scan distal left ureteric ston e 4 mm with mild hydro. No other stones seen - 08/11 renal ultrasound no stones seen - 02/10 renal ultrasound 4 mm stone bilat eral - 01/11 renal ultrasound question of bila teral 3 mm stones, CT scan presentation right flank pain 2 mm distal stone right side - 08/13 renal ultrasound - bilateral 3 m m stone Discussed need for increased fluid intake - review in 6 months [facility] Medical History No pertinent past medical history Review of Systems Const All systems reviewed & are unremarkable except as noted in HPI and below Reports no additional complaints Resp Reports no additional complaints GI Reports no additional complaints Reports as per HPI Musc Reports no additional complaints Physical Exam Telemedicine evaluation Appropriate responses Regular breathing rate and rhythm HEENT Head: Yes normal to inspection Ears: hearing grossly normal bilaterally Eyes General: appearance normal, both eyes and all related structures Neck Neck: Yes normal visual inspection Chest Chest palpation & inspection: normal inspection of the chest Resp Effort & Inspection: normal respiratory effort and able to speak in complete sentences Assessment & Plan Assessment & Plan (1) Nephrolithiasis: Code(s): N20.0 - Calculus of kidney Plan Start allopurinol and vitamin B6 Six month imaging Orders: Orders US renal BI 6 Months N20.0 - Calculus of kidney Medications: Refilled allopurinol 100 mg PO DAILY 90 tabs 1RF 90 days N20.0 - Calculus of kidney pyridoxine (vitamin B6) 50 mg PO DAILY 90 tabs 1RF 90 days N20.0 - Calculus of kidney Patient Instructions: Imaging studies, laboratory and physical exam results were discussed and reviewed in detail. No major barriers to patient understanding were identified. An opportunity to ask questions regarding the treatment plan was provided. All questions were answered. The patient expressed understanding and agreement with the above treatment plan. The patient is aware they should contact our office by phone for worsening of their current condition or the appearance of new urologic symptoms. Compliance is encouraged with any medications and followup testing that is ordered. It is a privilege to participate in the urologic care of your patient. If you have any questions or concerns regarding treatment for the above conditions, or other urologic issues, please do not hesitate to contact me. The office telephone contact is [phone]. This note is constructed using voice recognition software. While every effort has been made to ensure accuracy manager inspection errors may have been included. Yours sincerely, Dr Jenaro Chauhan MD, [facility] - Urology Providers of Expert, Compassionate Care for the Genitourinary System Telehealth Telehealth Location of provider rendering services: practice address Location of patient: address on file Patient Identification confirmed using: Name, : Yes Telehealth method: video Patient verbally consented to treatment: Yes Patient verbally consented to billing insurance company: Yes Patient informed of any privacy concerns related to visit: Yes Coding Level of Care Code Tele Est Pt Level 4 (65674) Diagnoses Nephrolithiasis N20.0
== END 2023-09-04 14:52 | disposition home or self-care (01) ==
LOC: HO.HUSH 12:34
PROVIDERS: PCP Internal Medicine; Visit Provider Urology
DX: N20.0 Calculus of kidney (principal)
CPT/HCPCS: 99214

== ENCOUNTER → 2023-09-04 12:34 | Outpatient (BNVA) | payer OTHER, SELFPAY | PROVIDERS: PCP Internal Medicine; Visit Provider Urology ==

== ENCOUNTER 2024-03-18 07:58 | Outpatient (REF) | payer OTHER, SELFPAY ==
--- NOTE | ~2024-03-18 | US_ITS ---
EXAMINATION: US RETROPERITONEAL LIMITED (RENAL ONLY) CLINICAL INFORMATION: Calculus of kidney. COMPARISON: Renal ultrasound 08/22/2023 and 02/13/2023. CT abdomen and pelvis 01/08/2023. TECHNIQUE: Real-time imaging of the kidneys. Limited visualization due to bowel gas. FINDINGS: RIGHT KIDNEY: 10.2 x 4.7 x 5.0 cm (SAG x AP x TRV). No hydronephrosis. No renal calculi. Renal cortical thickness is normal. Limited visualization. Multiple echogenic, nonshadowing foci may represent artifact, nonobstructive calculi or vascular calcifications. LEFT KIDNEY: 9.8 x 6.1 x 5.3 cm (SAG x AP x TRV). No hydronephrosis. No renal calculi. Renal cortical thickness is normal. Limited visualization. Multiple echogenic, nonshadowing foci may represent artifact, nonobstructive calculi or vascular calcifications. US/US renal BI IMPRESSION: Multiple echogenic, nonshadowing foci may represent artifact, nonobstructive calculi or vascular calcifications.
== END 2024-03-18 07:59 | disposition home or self-care (01) ==
LOC: HO.HMGCX 07:58
PROVIDERS: PCP Internal Medicine; Visit Provider Urology
DX: N20.0 Calculus of kidney (principal)
CPT/HCPCS: 76775

== ENCOUNTER 2024-07-17 08:58 | Outpatient (AMB) | payer BC, SELFPAY ==
--- NOTE | 2024-07-17 09:08 | A.OFFVIS_ITS ---
Intake Visit Reasons: 1Y follow up-Ultrasound(set) Intake Note: Patient is Present for Follow Up Ultrasound Urology Medication: Vitamin B6, Tamsulosin Antibiotic Allergies: None Blood Thinners: None Allergies No Known Allergies Allergy (Mild, Verified 03/03/22 14:49) NOT APPLICABLE Medication List - Last Reconciled 07/17/24 by Jenaro Chauhan MD allopurinol 100 mg PO DAILY 90 days ibuprofen 400 mg PO Q6H PRN ibuprofen 400 mg PO TID PRN ondansetron HCl (Zofran) 4 mg PO Q8H PRN pyridoxine (vitamin B6) 50 mg PO DAILY 90 days HPI Comments Details: Patrick is a pleasant male. He is a patient of Dr. Marrero. He is seen for the following urologic issues - nephrolithiasis Six-month surveillance visit Has been on allopurinol and vitamin B6 Small stones on ultrasound Remain on vitamin B6 12 month follow-up imaging Nephrolithiasis Recurrent flank pain 01/11 CT 2 mm distal right ureteric stone Thinks he passed the stone with medical expulsion therapy Imaging - 05/11 CT scan distal left ureteric stone 4 mm with mild hydro. No other stones seen - 08/11 renal ultrasound no stones seen - 02/10 renal ultrasound 4 mm stone bilateral - 01/11 renal ultrasound question of bilateral 3 mm stones, CT scan presentation right flank pain 2 mm distal stone right side - 08/13 renal ultrasound - bilateral 3 mm stone - 03/14 renal ultrasound multiple small echogenic foci bilateral Discussed need for increased fluid intake PFSH Medical History No pertinent past medical history Review of Systems Const Denies chills and Denies fever(s) Card Reports no additional complaints and Denies syncope Resp Denies cough GI Denies abdominal pain and Denies heartburn Reports as per HPI and Denies change in libido Neuro Denies syncope Psych Denies change in libido Endo Denies change in libido Physical Exam Const General: cooperative, healthy appearing, comfortable and no acute distress Orientation/consciousness: patient oriented x3 HEENT Face and sinus: Yes normal facial exam Mouth: moist mucous membranes Neck Neck: Yes normal visual inspection, Yes full ROM and Yes trachea midline Chest Chest palpation & inspection: normal inspection of the chest Resp Effort & Inspection: normal respiratory effort, able to speak in complete sentences and no respiratory distress GI Inspection: Yes normal to inspection Back/Spine/Pelvis Cervical Spine: normal cervical lordosis Thoracic/Lumbar Spine: thoracic and lumbar spine normal to inspection Skin General skin exam: no rashes or lesions noted Neuro General: patient oriented x3, gait normal, tone normal and moves all extremities Extrem General: Yes normal to inspection and Yes capillary refill normal Assessment & Plan Assessment & Plan (1) Nephrolithiasis: Code(s): N20.0 - Calculus of kidney Category: Medical Plan One year follow-up Orders: Orders XR KUB 1 Year N20.0 - Calculus of kidney Medications: Refilled pyridoxine (vitamin B6) 50 mg PO DAILY 90 days 90 tabs 3RF N20.0 - Calculus of kidney Patient Instructions: Imaging studies, laboratory and physical exam results were discussed and reviewed in detail. No major barriers to patient understanding were identified. An opportunity to ask questions regarding the treatment plan was provided. All questions were answered. The patient expressed understanding and agreement with the above treatment plan. The patient is aware they should contact our office by phone for worsening of their current condition or the appearance of new urologic symptoms. Compliance is encouraged with any medications and followup testing that is ordered. It is a privilege to participate in the urologic care of your patient. If you have any questions or concerns regarding treatment for the above conditions, or other urologic issues, please do not hesitate to contact me. The office telephone contact is [phone]. This note is constructed using voice recognition software. While every effort has been made to ensure accuracy glass cutting machine operator errors may have been included. Yours sincerely, Dr Jenaro Chauhan MD, [facility] - Urology Providers of Expert, Compassionate Care for the Genitourinary System Coding Level of Care Code Est Pt Level 3 (67510) Diagnoses Nephrolithiasis N20.0
== END 2024-07-17 09:28 | disposition home or self-care (01) ==
PROVIDERS: PCP Internal Medicine; Visit Provider Urology
DX: N20.0 Calculus of kidney (principal)
CPT/HCPCS: 99213

== ENCOUNTER → 2024-07-17 08:58 | Outpatient (BNVA) | payer BC, SELFPAY | PROVIDERS: PCP Internal Medicine; Visit Provider Urology ==